=== PATIENT | female | born 1980 | race Caucasian/White ===

== ENCOUNTER 2018-04-22 08:46 | Emergency (ER) | payer BC ==
--- NOTE | 2018-04-22 09:32 | ER Document Report ---
ED Medical Screen (RME) - General Chief Complaint: Headache Stated Complaint: HEADACHE Time Seen by Provider: 04/22/18 09:30 Mode of Arrival: Ambulatory Information source: Patient Notes: This is a 37-year-old female with a history of diabetes who presents to the emergency room with spiking fevers (103.6), dry cough, headache and right flank pain. Patient denies any allergies. Patient denies any history of kidney stones. Patient denies any tick bites. Patient denies any pet bites (she has 3 cats and a dog). She does have a history of a right lower extremity cellulitis. TRAVEL OUTSIDE OF THE [place] IN LAST 30 DAYS: No - Related Data Allergies/Adverse Reactions: No Known Allergies Allergy (Verified 04/22/18 08:49) Past Medical History - Social History Frequency of alcohol use: None Drug Abuse: None - Past Medical History Cardiac Medical History: Reports: Hx Hypertension Endocrine Medical History: Reports: Hx Diabetes Mellitus Type 2 Renal/ Medical History: Denies: Hx Peritoneal Dialysis Physical Exam - Vital signs Vitals: Temp Pulse Resp BP Pulse Ox 100.0 F 104 H 15 150/74 H 97 04/22/18 08:50 04/22/18 08:50 04/22/18 08:50 04/22/18 08:50 04/22/18 08:50 Course - Vital Signs Vital signs: Temp Pulse Resp BP Pulse Ox 100.0 F 104 H 15 150/74 H 97 04/22/18 08:50 04/22/18 08:50 04/22/18 08:50 04/22/18 08:50 04/22/18 08:50 Doctor's Discharge - Discharge Referrals: JAVIER,NO [Primary Care Provider] - Follow up as needed
[2018-04-22 10:05] LABS: APPEARANCE,URINE SLIGHTLY-CLOUDY; BILIRUBIN,URINE NEGATIVE (NEGATIVE); COLOR,URINE YELLOW; GLUCOSE, URINE >=500 mg/dL (NEGATIVE); KETONES,URINE TRACE mg/dL (NEGATIVE); LEUKOCYTE ESTERASE,URINE SMALL (NEGATIVE); NITRITE,URINE NEGATIVE (NEGATIVE); PROTEIN,URINE 30 mg/dL (NEGATIVE); URINE SPECIFIC GRAVITY 1.016; UROBILINOGEN,URINE NEGATIVE mg/dL (<2.0)
[2018-04-22] MEDS ORDERED: NORMAL SALINE 1000 ML 1,000 ML IV ONE ×2 (10:13)
--- NOTE | 2018-04-22 10:14 | RADIOLOGY REPORT (SQ) ---
EXAM DESCRIPTION: CHEST 2 VIEWS COMPLETED DATE/TIME: 04/22/2018 9:52 am REASON FOR STUDY: cough, green, fever COMPARISON: 11/04/2010 EXAM PARAMETERS: NUMBER OF VIEWS: two views TECHNIQUE: Digital Frontal and Lateral radiographic views of the chest acquired. RADIATION DOSE: NA LIMITATIONS: none FINDINGS: LUNGS AND PLEURA: No opacities, masses or pneumothorax. No pleural effusion. MEDIASTINUM AND HILAR STRUCTURES: No masses or contour abnormalities. HEART AND VASCULAR STRUCTURES: Heart normal size. No evidence for failure. BONES: No acute findings. HARDWARE: None in the chest. OTHER: No other significant finding. IMPRESSION: NO ACUTE RADIOGRAPHIC FINDING IN THE CHEST. TECHNICAL DOCUMENTATION: JOB ID: [id number] [employer]- All Rights Reserved Reading location - IP/workstation name: [email or web address]
[2018-04-22 10:16] LABS: ALANINE AMINOTRANSFERASE 49 U/L (9-52); ALBUMIN 3.6 g/dL (3.5-5.0); ALKALINE PHOSPHATASE 74 U/L (38-126); ANION GAP 15 (5-19); ASPARTATE AMINO TRANSFERASE 50 U/L (14-36); BILIRUBIN,DIRECT 0.3 mg/dL (0.0-0.4); BILIRUBIN,TOTAL 0.4 mg/dL (0.2-1.3); BLOOD UREA NITROGEN 8 mg/dL (7-20); CALCIUM 9.1 mg/dL (8.4-10.2); CARBON DIOXIDE 26 mmol/L (22-30); CHLORIDE 100 mmol/L (98-107); GLUCOSE 211 mg/dL (75-110); POTASSIUM 3.5 mmol/L (3.6-5.0); SODIUM 140.5 mmol/L (137-145)
[2018-04-22 10:25] LABS: ABSOLUTE BASOPHILS # (AUTO) 0.1 10^3/uL (0.0-0.2); ABSOLUTE LYMPHOCYTES (AUTO) 2.1 10^3/uL (0.5-4.7); ABSOLUTE MONOCYTES (AUTO) 1.2 10^3/uL (0.1-1.4); ABSOLUTE NEUT (AUTO) 7.3 10^3/uL (1.7-8.2); BASOPHILS % (AUTO) 0.5 % (0-2); EOSINOPHILS % (AUTO) 0.4 % (0-6); HEMATOCRIT 31.1 % (36.0-47.0); HEMOGLOBIN 9.7 g/dL (12.0-15.5); MEAN CORPUSCULAR HEMOGLOBIN 20.2 pg (27.0-33.4); MEAN CORPUSCULAR HGB CONC 31.2 g/dL (32.0-36.0); MEAN CORPUSCULAR VOLUME 65 fl (80-97); MONOCYTES % (AUTO) 10.8 % (3-13); PLATELET COUNT 308 10^3/uL (150-450); RED CELL DISTRIBUTION WIDTH 18.4 % (11.5-14.0); SEGMENTED NEUTROPHILS % (AUTO) 68.3 % (42-78); TOTAL CELLS COUNTED % (AUTO) 100 %; WHITE BLOOD COUNT 10.7 10^3/uL (4.0-10.5)
[2018-04-22 10:27] LABS: HYPOCHROMASIA 1+; POLYCHROMASIA 1+
[2018-04-22 10:28] LABS: ANISOCYTOSIS 2+; OVALOCYTES 1+; PLATELET COMMENT ADEQUATE; POIKILOCYTOSIS 1+
[2018-04-22] MEDS ORDERED: CEFTRIAXONE 1 GM/D5W RTU 1 GM/50 ML RTUPB IV ONE (10:57)
--- NOTE | 2018-04-22 11:51 | RADIOLOGY REPORT (SQ) ---
EXAM DESCRIPTION: CT ABD/PELVIS WITH IV ONLY COMPLETED DATE/TIME: 04/22/2018 11:33 am REASON FOR STUDY: right flank ruq pain COMPARISON: None. TECHNIQUE: CT scan of the abdomen and pelvis performed using helical scanning technique with dynamic intravenous contrast injection. No oral contrast. Images reviewed with lung, soft tissue, and bone windows. Reconstructed coronal and sagittal MPR images reviewed. Delayed images for evaluation of the urinary system also acquired. All images stored on PACS. All CT scanners at this facility use dose modulation, iterative reconstruction, and/or weight based d osing when appropriate to reduce radiation dose to as low as reasonably achievable (ALARA). [facility]: Dose Right [facility]: CareDose [facility]: Dose Right [facility]: Teradose 4D [facility]: FindIt CONTRAST TYPE AND DOSE: contrast/concentration: Isovue 350.00 mg/ml; Total Contrast Delivered: 100.0 ml; Total Saline Delivered: 72.0 ml RENAL FUNCTION: None required. The patient is less than 50 years old. RADIATION DOSE: CT Rad equipment meets quality standard of care and radiation dose reduction techniq ues were employed. CTDIvol: 19.8 - 20.9 mGy. DLP: 2443 mGy-cm.. LIMITATIONS: None. FINDINGS: LOWER CHEST: No significant findings. No nodules or infiltrates. LIVER: Normal size. No masses. No dilated ducts. There is fatty infiltration of the liver. SPLEEN: Normal size. No focal lesions. PANCREAS: No masses. No significant calcifications. No adjacent inflammation or peripancreatic fluid collections. Pancreatic duct not dilated. GALLBLADDER: No identified stones by CT criteria. No inflammatory changes to suggest cholecystitis. ADRENAL GLANDS: No significant masses or asymmetry. RIGHT KIDNEY AND URETER: No solid masses. There is heterogeneous enhancement of the right kidney wit h the differential possibilities including an infectious process such as pyelonephritis versus possib le ischemic changes. Other etiologies including an inflammatory process cannot be excluded. No sign ificant calcifications. No hydronephrosis or hydroureter. LEFT KIDNEY AND URETER: No solid masses. No significant calcifications. No hydronephrosis or hydr oureter. AORTA AND VESSELS: No aneurysm. No dissection. Renal arteries, SMA, celiac without stenosis. RETROPERITONEUM: No retroperitoneal adenopathy, hemorrhage or masses. BOWEL AND PERITONEAL CAVITY: No masses or inflammatory changes. No free fluid or peritoneal masses. APPENDIX: Normal. PELVIS: No mass. No free fluid. Normal bladder. ABDOMINAL WALL: No masses. No hernias. BONES: No significant or acute findings. OTHER: No other significant finding. IMPRESSION: Heterogeneous enhancement of the right kidney as noted above with the differential possi bilities including an infectious process such as pyelonephritis versus possible ischemic changes. Ot her etiologies cannot be completely excluded. Clinical correlation is recommended. Other findings a s noted above TECHNICAL DOCUMENTATION: JOB ID: [id number] Quality ID # [id number]: Final reports with documentation of one or more dose reduction techniques (e.g., Au tomated exposure control, adjustment of the mA and/or kV according to patient size, use of iterative reconstruction technique) 2010 [employer]- All Rights Reserved Reading location - IP/workstation name: [email or web address]
[2018-04-22] MEDS ORDERED: CEFTRIAXONE INJ 1000 MG VIAL IV ONE (12:08)
[2018-04-22] MEDS ORDERED: ONDANSETRON HCL INJ/PF 4 MG/2 ML SDV IV ONE (12:22)
[2018-04-22] MEDS ORDERED: CEPHALEXIN 500 MG CAPSULE PO ONE (12:22)
--- NOTE | 2018-04-22 13:05 | ER Document Report ---
ED General - General Chief Complaint: Headache Stated Complaint: HEADACHE Time Seen by Provider: 04/22/18 09:30 Mode of Arrival: Ambulatory TRAVEL OUTSIDE OF THE [place] IN LAST 30 DAYS: No - HPI Patient complains to provider of: Headache fevers abdominal pain Notes: There is coming in for headache fevers abdominal pain states ongoing for the last to 3 days. Patient states slight nausea no vomiting no diarrhea no recent antibiotics. Patient states last antibiotics was approximately 1 month ago when she was only for sinusitis infection. Patient otherwise states she has been taking Tylenol Motrin for her fevers T-max at home was 103. Patient denies any dysuria vaginal discharge or vaginal bleeding. Patient states abdominal pain in the right lateral right flank region. Patient has a history of kidney stones. Pulmonary evaluation patient is dressed currently. Denies any recent travel denies any sick contacts. - Related Data Allergies/Adverse Reactions: No Known Allergies Allergy (Verified 04/22/18 08:49) Past Medical History - General Information source: Patient - Social History Smoking Status: Former Smoker Frequency of alcohol use: None Drug Abuse: None Family History: Reviewed & Not Pertinent Patient has suicidal ideation: No Patient has homicidal ideation: No - Past Medical History Cardiac Medical History: Reports: Hx Hypertension Endocrine Medical History: Reports: Hx Diabetes Mellitus Type 2 Renal/ Medical History: Denies: Hx Peritoneal Dialysis Review of Systems - Review of Systems Constitutional: Fever EENT: No symptoms reported Cardiovascular: No symptoms reported Respiratory: No symptoms reported Gastrointestinal: Abdominal pain Genitourinary: No symptoms reported Female Genitourinary: No symptoms reported Musculoskeletal: No symptoms reported Skin: No symptoms reported Hematologic/Lymphatic: No symptoms reported Neurological/Psychological: No symptoms reported -: Yes All other systems reviewed and negative Physical Exam - Vital signs Vitals: Temp Pulse Resp BP Pulse Ox 100.0 F 104 H 15 150/74 H 97 04/22/18 08:50 04/22/18 08:50 04/22/18 08:50 04/22/18 08:50 04/22/18 08:50 Interpretation: Normal - General General appearance: Appears well, Alert - HEENT Head: Normocephalic, Atraumatic Eyes: Normal Pupils: PERRL - Respiratory Respiratory status: No respiratory distress Chest status: Nontender Breath sounds: Normal Chest palpation: Normal - Cardiovascular Rhythm: Regular Heart sounds: Normal auscultation Murmur: No - Abdominal Inspection: Normal Distension: No distension Bowel sounds: Normal Tenderness: Tender - Mild to moderate right upper quadrant tenderness to palpation. No: McBurney's point, Nicholson's sign, Guarding, Rebound Organomegaly: No organomegaly - Back Back: Normal, Nontender. No: CVA tenderness - Extremities General upper extremity: Normal inspection, Nontender, Normal color, Normal ROM , Normal temperature General lower extremity: Normal inspection, Nontender, Normal color, Normal ROM , Normal temperature, Normal weight bearing. No: Faisal's sign - Neurological Neuro grossly intact: Yes Cognition: Normal Orientation: AAOx4 Christiano Coma Scale Eye Opening: Spontaneous Christiano Coma Scale Verbal: Oriented Christiano Coma Scale Motor: Obeys Commands Christiano Coma Scale Total: 15 Speech: Normal Motor strength normal: LUE, RUE, LLE, RLE Sensory: Normal - Psychological Associated symptoms: Normal affect, Normal mood - Skin Skin Temperature: Warm Skin Moisture: Dry Skin Color: Normal Course - Re-evaluation Re-evalutation: 04/22/18 14:41 Urinalysis initial laboratory studies is very minimal white blood cell count no hematuria leukocyte esterase positive with few WBCs and bacteria in the urinalysis. Because of the right upper quadrant abdominal pain and girth of the patient I did decide to have CT scan performed CT scan was read as infectious etiology inflammatory etiology or ischemic etiology on the initial read. Did discuss the case with Dr. Mota. as patient has a fever and bacteria in his her urinalysis more likely the patient's CT scan findings are consistent with a pyelonephritis in these other etiologies are extremely less likely. Patient has no reason to have ischemia of her kidneys or an inflammatory process of her kidneys. Creatinine and BUN are otherwise normal. Patient will be treated for pyelonephritis was given a dose of Rocephin here treated with Keflex at home was given a dose of Keflex here in the ER and they will tolerate. Patient encouraged to use Tylenol Motrin for pain control Ultram for severe pain and Zofran for any nausea follow up with her primary care physician or return to the ER symptoms worsen. Patient started look to be stable for discharge home - Vital Signs Vital signs: Temp Pulse Resp BP Pulse Ox 100.4 F 109 H 18 151/88 H 100 04/22/18 14:29 04/22/18 14:29 04/22/18 14:29 04/22/18 14:29 04/22/18 14:29 - Laboratory Result Diagrams: 04/22/18 09:34 04/22/18 09:34 Laboratory results interpreted by me: 04/22/18 04/22/18 04/22/18 09:34 09:34 09:34 WBC 10.7 H Hgb 9.7 L Hct 31.1 L MCV 65 L MCH 20.2 L MCHC 31.2 L RDW 18.4 H Potassium 3.5 L Creatinine 0.48 L Glucose 211 H AST 50 H Urine Protein 30 H Urine Glucose (UA) >=500 H Urine Ketones TRACE H Ur Leukocyte Esterase SMALL H Discharge - Discharge Clinical Impression: Pyelonephritis Condition: Good Disposition: HOME, SELF-CARE Instructions: Cephalexin ([facility]), Pyelonephritis ([facility]), Rocephin ([facility]) Additional Instructions: No recommendations or signs of urinary tract infection with CT scan showing signs of a kidney infection. We will treat you for skin infection, pyelonephritis. He was given a dose of antibiotics here in ER record Rocephin that will last for 24 hours. Please start Keflex as prescribed. He can start tonight or tomorrow morning. Continue to take Tylenol Motrin for pain control. Will take Ultram for severe pain. Also would recommend Tylenol Motrin for fever control. Zofran for nausea. Please call your doctor tomorrow to make sure he follow-up on Monday. Return to the ER if you feel like you are not getting any better. Prescriptions: Cephalexin Monohydrate [Keflex 500 mg Capsule] 500 mg PO Q6H 10 Days capsule Ondansetron [Zofran Odt] 4 mg PO Q6 PRN #30 tab.rapdis PRN Reason: For Nausea/Vomiting Tramadol HCl [Ultram 50 mg Tablet] 50 mg PO ASDIR PRN #14 tablet PRN Reason: Forms: Return to Work Referrals: LOCALMD,NO [NO LOCAL MD] - Follow up in 3-5 days
[2018-04-22] MEDS ORDERED: KETOROLAC TROMETHAMINE INJ/PF 30 MG/1 ML SDV IV ONE (13:23)
[2018-04-22 14:34] VITALS: BP 151/88
--- NOTE | 2018-04-22 16:17 | EKG REPORT ---
SEVERITY:- BORDERLINE ECG - SINUS TACHYCARDIA INFERIOR Q WAVES, PROBABLY NORMAL VARIATION : Confirmed by: Melo Victor MD 22-Apr-2018 16:16:16
== END 2018-04-22 14:34 | disposition home or self-care (01) ==
LOC: ER 08:46
DX: N12 Tubulo-interstitial nephritis, not specified as acute or chronic (principal); R51 Headache; R50.9 Fever, unspecified; R10.9 Unspecified abdominal pain; I10 Essential (primary) hypertension; E11.9 Type 2 diabetes mellitus without complications
CPT/HCPCS: 93005; 99285; 96361; 96375; 96365; 36415; 87086; 83690; 85025; 81025; 87088; 80053; 81001; 87186; 71046; 74177; 93010; J1885; J0696; J2405; J7030